=== PATIENT | female | born 1995 | race Native Hawaiian/Other Pacific Islander ===

== ENCOUNTER 2018-07-20 10:24 | Inpatient (IN) | payer MEDICAID, OTHER ==
[2018-07-20] MEDS ORDERED: Sodium Chloride 0.9% 1,000 ML IV STA ×2 (10:46→16:29)
--- NOTE | 2018-07-20 10:52 | ED PDOC ---
Arrival/HPI - General Chief Complaint: Fever Historian: Patient - History of Present Illness Narrative History of Present Illness (Text): 07/20/18 10:48 23 y/o female, no significant pmh, nkda, c/o fever/abdominal pain/diarrhea/headache x 2 days. Pt. stated that she has generalized abdominal pain, associated with multiple episodes of nonbloody diarrhea, admits fever 101.7F at home, associated with headache, no recent traveling, no neck stiffness, no numbness or tingling, no palpitation, no change in vision, no other medical or psychological complaints. Past Medical History - Provider Review Nursing Documentation Reviewed: Yes - Infectious Disease Hx of Infectious Diseases: None - Pulmonary Hx Sleep Apnea: No - Neurological Hx Seizures: No - Hematological/Oncological Hx Blood Transfusions: No - Musculoskeletal/Rheumatological Hx Back Pain: No Hx Falls: No Hx Fractures: No - Gastrointestinal Hx Gastrointestinal Disorders: Yes Hx Gastritis: Yes Hx Gastroesophageal Reflux: Yes - Psychiatric Hx Substance Use: No - Anesthesia Hx Anesthesia: No Hx Anesthesia Reactions: No Hx Malignant Hyperthermia: No Family/Social History - Physician Review Nursing Documentation Reviewed: Yes Family/Social History: Unknown Family HX Smoking Status: Never Smoked Hx Alcohol Use: No Hx Substance Use: No Allergies/Home Meds Allergies/Adverse Reactions: Allergies No Known Allergies Allergy (Verified 03/28/17 08:27) Home Medications: Home Meds Medication Instructions Recorded Confirmed No Known Home Med 07/20/18 07/20/18 Review of Systems - Review of Systems Constitutional: Fevers. absent: Fatigue Eyes: absent: Vision Changes ENT: absent: Hearing Changes Respiratory: absent: SOB, Cough Cardiovascular: absent: Chest Pain Gastrointestinal: Abdominal Pain, Diarrhea. absent: Nausea, Vomiting Skin: absent: Rash, Pruritis Neurological: Headache. absent: Dizziness Psychiatric: absent: Anxiety, Depression Physical Exam Vital Signs Reviewed: Yes Vital Signs Temp Pulse Resp BP Pulse Ox 07/20/18 10:34 101.7 F H 133 H 20 106/49 L 99 Temperature: Febrile Blood Pressure: Hypotensive Pulse: Tachycardic Respiratory Rate: Normal Appearance: Positive for: Well-Appearing, Non-Toxic Pain Distress: Moderate Mental Status: Positive for: Alert and Oriented X 3 - Systems Exam Head: Present: Atraumatic, Normocephalic Pupils: Present: PERRL Extroacular Muscles: Present: EOMI Conjunctiva: Present: Normal Mouth: Present: Moist Mucous Membranes Pharnyx: No: EXUDATE, TONSILS ENLARGED Nose (External): Present: Atraumatic. No: Abrasion, Contusion, Laceration Nose (Internal): Present: Normal Inspection, No Active Bleeding. No: Rhinorrhea, Septal Hematoma, Epistaxis Neck: Present: Normal Range of Motion, Trachea Midline. No: Meningeal Signs, MIDLINE TENDERNESS, Paraspinal Tenderness, Lymphadenopathy Respiratory/Chest: Present: Clear to Auscultation, Good Air Exchange. No: Respiratory Distress, Accessory Muscle Use Cardiovascular: Present: Regular Rate and Rhythm, Normal S1, S2. No: Murmurs Abdomen: Present: Tenderness (generalized), Normal Bowel Sounds. No: Distention, Peritoneal Signs, Rebound, Guarding Back: Present: Normal Inspection Upper Extremity: Present: Normal Inspection, Normal ROM, NORMAL PULSES, Capillary Refill < 2s. No: Cyanosis, Edema, Deformity Lower Extremity: Present: Normal Inspection, NORMAL PULSES, Neurovascularly Intact. No: Edema, Tenderness, Swelling Neurological: Present: GCS=15, CN II-XII Intact, Speech Normal, Motor Func Grossly Intact, Normal Cerebellar Funct, Gait Normal, Memory Normal Skin: Present: Warm, Dry, Normal Color. No: Rashes Psychiatric: Present: Alert, Oriented x 3, Normal Insight, Normal Concentration Medical Decision Making ED Course and Treatment: 07/20/18 10:51 -labs -CXR -CT abdomen and pelvis -IVF/tylenol/pepcid/reglan -Observe and reassess 07/20/18 15:59 -Urine hcg is negative -CXR No active pulmonary disease -CT head show No acute intracranial abnormality. -CT abdomen and pelvis show Findings are most compatible with nonspecific acute infectious/inflammatory pancolitis with severe involvement of the transverse colon. No evidence of bowel obstruction. -Labs show no acute findings except potassium 3.1 (potassium chloride 40meq po ordered) -Lipase within normal limit -Mg within normal limit -VBG Lactic acid within normal limit. -UA show +UTI but there is yeast, diflucan 150mg po ordered. -IV Cipro and flagyl ordered. -Orthostatic is negative for hypotension. -Pt. is continuously having diarrhea, hypotension (which can be her baseline), not tolerating po solid or fluid, having soreness on body from diarrhea and feel like passing out, will need IV hydration and IV antibiotic with GI consult, will treat as flu as well since normal wbc with fever. -Tamiflu ordered. -PMD is Dr. Rasheed -All labs and radiology results discussed with the patient and family, agreed to be admitted. 07/20/18 16:27 -I spoke to DR. Garvin, discussed about the case/labs/radiology result, expressed my concern her clinically with multiple diarrhea/bodyache/not eating or drinking , request to be admitted to [facility] for closer monitoring. Dr. Garvin will continue care and follow up on any pending labs/radiology results. - RAD Interpretation Radiology Orders: 07/20/18 10:45 CHEST PORTABLE [RAD] Stat 07/20/18 10:47 ABDOMEN & PELVIS [ABD PELVIS PO & IV CONTRAST] [CT] Stat . -CXR Date of service: 07/20/2018 HISTORY: medical clearance COMPARISON: 11/27/2016 FINDINGS: LUNGS: The lungs are well inflated and clear. PLEURA: No pleural effusions or pneumothorax. CARDIOVASCULAR: The heart is normal in size. No aortic atherosclerotic calcification present. OSSEOUS STRUCTURES: Within normal limits for the patient's age. VISUALIZED UPPER ABDOMEN: Normal. OTHER FINDINGS: None. IMPRESSION: No active pulmonary disease. -CT abdomen and pelvis Date of service: 07/20/2018 PROCEDURE: CT Abdomen and Pelvis with contrast HISTORY: fever/abdominal pain/diarrhea COMPARISON: 06/15/2016. TECHNIQUE: CT scan of the abdomen and pelvis was performed after administration of intravenous contrast. Oral contrast was administered. Coronal and sagittal reformatted images were obtained. Contrast dose: 100 mL Omnipaque 240 Radiation dose: Total exam DLP = 228.14 mGy-cm. This CT exam was performed using one or more of the following dose reduction techniques: Automated exposure control, adjustment of the mA and/or kV according to patient size, and/or use of iterative reconstruction technique. FINDINGS: LOWER THORAX: There is dependent atelectasis in the lung bases. LIVER: Normal in size with homogeneous enhancement. No gross lesion or ductal dilatation. GALLBLADDER AND BILE DUCTS: Well distended. No calcified gallstones, wall thickening or pericholecystic fluid. PANCREAS: Normal in size with homogeneous enhancement. No gross lesion or ductal dilatation. SPLEEN: Normal in size and appearance. ADRENALS: No discrete nodule. KIDNEYS AND URETERS: Normal in size with homogeneous enhancement. No hydronephrosis. No solid mass. VASCULATURE: No aortic aneurysm. BOWEL: The small bowel loops are normal in caliber. There is severe circumferential mural thickening in the transverse colon and mild circumferential mural thickening in the ascending and left hemicolon as well as rectum. No evidence of bowel dilatation or obstruction. APPENDIX: Normal appendix. PERITONEUM: No free fluid. No free air. LYMPH NODES: No enlarged lymph nodes. BLADDER: Well distended and normal in appearance. REPRODUCTIVE: The uterus is normal in size. BONES: No acute fracture. Within normal limits for the patient's age. OTHER FINDINGS: There is a small sliding hiatal hernia. IMPRESSION: Findings are most compatible with nonspecific acute infectious/inflammatory pancolitis with severe involvement of the transverse colon. No evidence of bowel obstruction. ---- CT Head: Date of service: 07/20/2018 PROCEDURE: CT HEAD WITHOUT CONTRAST. HISTORY: headache COMPARISON: None available. TECHNIQUE: Axial computed tomography images were obtained through the head/brain without intravenous contrast. Radiation dose: Total exam DLP = 787.28 mGy-cm. This CT exam was performed using one or more of the following dose reduction techniques: Automated exposure control, adjustment of the mA and/or kV according to patient size, and/or use of iterative reconstruction technique. FINDINGS: HEMORRHAGE: No intracranial hemorrhage. BRAIN: Paul-white matter differentiation is preserved. There is no mass, mass effect or abnormal extra-axial fluid collection. There is no territorial infarction. The midline sagittal structures are normal. VENTRICLES: The ventricles are normal in size, shape and configuration. CALVARIUM: There is no calvarial fracture or extracranial soft tissue swelling. PARANASAL SINUSES: Predominantly clear. MASTOID AIR CELLS: Predominantly clear. OTHER FINDINGS: None. IMPRESSION: No acute intracranial abnormality. Sonoscope Operator: Radiologist - Medication Orders Current Medication Orders: Acetaminophen (Tylenol 325mg Tab) 650 mg PO STAT STA Stop: 07/20/18 10:48 Sodium Chloride (Sodium Chloride 0.9%) 1,000 mls @ 999 mls/hr IV .Q1H1M STA Stop: 07/20/18 11:46 Discontinued Medications Famotidine (Pepcid) 20 mg IVP STAT STA Stop: 07/20/18 10:46 Metoclopramide HCl (Reglan) 10 mg IVP STAT STA Stop: 07/20/18 10:46 - PA / TINNER HELPER / Resident Statement MD/DO has reviewed & agrees with the documentation as recorded. Disposition/Present on Arrival - Present on Arrival Any Indicators Present on Arrival: No History of DVT/PE: No History of Uncontrolled Diabetes: No Urinary Catheter: No History of Decub. Ulcer: No History Surgical Site Infection Following: None - Disposition Have Diagnosis and Disposition been Completed?: Yes Diagnosis: Candidiasis, Hypokalemia, UTI (urinary tract infection), Pancolitis Disposition: HOSPITALIZED Disposition Time: 15:56 Patient Plan: Admission Patient Problems: Current Active Problems Problem Status Onset Candidiasis Acute Hypokalemia Acute UTI (urinary tract infection) Acute Pancolitis Acute Condition: STABLE Discharge Instructions (ExitCare): Ulcerative Colitis (ED) Forms: [facility] (Chinese), SCHOOL NOTE
[2018-07-20] MEDS ORDERED: Sodium Chloride 0.9% 1,000 ML IV SCH (11:00)
[2018-07-20 11:23] LABS: PH,URINE 6.5 (4.7-8.0); URINE BILIRUBIN NEGATIVE (NEGATIVE); URINE BLOOD TRACE-INTACT (NEGATIVE); URINE GLUCOSE (UA) NEGATIVE (NEGATIVE); URINE LEUKOCYTE ESTERASE NEGATIVE Leu/uL (NEGATIVE); URINE PROTEIN TRACE mg/dL (<30 mg/dL); URINE UROBILINOGEN 0.2 E.U./dL (<1 E.U./dL)
[2018-07-20 11:29] LABS: URINE APPEARANCE CLEAR (CLEAR); URINE COLOR YELLOW (YELLOW)
[2018-07-20 11:32] LABS: VENOUS BLOOD GAS BASE EXCESS -1.7 mmol/L (0.0-2.0); VENOUS BLOOD GAS PO2 34 mm/Hg (30-55); VENOUS BLOOD PH 7.34 (7.32-7.43)
[2018-07-20 11:44] LABS: ALB/GLOB RATIO 1.3 (1.1-1.8); ALBUMIN 3.9 g/dL (3.0-4.8); ALT/SGPT 17 U/L (7-56); AST/SGOT 16 U/L (14-36); BLOOD UREA NITROGEN 8 mg/dL (7-21); CALCIUM 8.7 mg/dL (8.4-10.5); GFR NON-AFRICAN AMERICAN > 60; LIPASE 49 U/L (23-300)
[2018-07-20 11:48] LABS: GRAN # 6.73 (1.4-6.5); GRAN % 88.7 % (50.0-68.0); HEMOGLOBIN 12.2 g/dL (12.0-16.0); LYMPH # 0.7 (1.2-3.4); LYMPH % 8.8 % (22.0-35.0); MEAN CELL VOLUME 93.3 fl (80.0-105.0); MEAN CORPUSCULAR HEMOGLOBIN 31.6 pg (25.0-35.0); MEAN CORPUSCULAR HGB CONC 33.9 g/dl (31.0-37.0); MEAN PLATELET VOLUME 9.3 fl (7.0-11.0); MONO # 0.2 (0.1-0.6); MONO % 2.5 % (1.0-6.0); RBC 3.86 10^6/uL (3.5-6.1); RED CELL DISTRIBUTION WIDTH 12.3 % (11.5-14.5); WHITE BLOOD COUNT 7.6 10^3/uL (4.5-11.0)
--- NOTE | 2018-07-20 11:55 | RAD ---
Date of service: 07/20/2018 HISTORY: medical clearance COMPARISON: 11/27/2016 FINDINGS: LUNGS: The lungs are well inflated and clear. PLEURA: No pleural effusions or pneumothorax. CARDIOVASCULAR: The heart is normal in size. No aortic atherosclerotic calcification present. OSSEOUS STRUCTURES: Within normal limits for the patient's age. VISUALIZED UPPER ABDOMEN: Normal. OTHER FINDINGS: None. IMPRESSION: No active pulmonary disease.
[2018-07-20 12:03] LABS: URINE WBC 0 - 2 /hpf (0-6)
[2018-07-20 12:04] LABS: URINE BACTERIA LARGE (NEG)
[2018-07-20] MEDS ORDERED: Potassium Chloride 20 mEq ER Tab PO STA (12:13)
[2018-07-20] MEDS ORDERED: Iohexol 240 (50 ml) ONE (12:27)
[2018-07-20] MEDS ORDERED: Iohexol 350 MG/100 ML VIAL ONE (14:18)
--- NOTE | 2018-07-20 15:41 | CT ---
Date of service: 07/20/2018 PROCEDURE: CT HEAD WITHOUT CONTRAST. HISTORY: headache COMPARISON: None available. TECHNIQUE: Axial computed tomography images were obtained through the head/brain without intravenous contrast. Radiation dose: Total exam DLP = 787.28 mGy-cm. This CT exam was performed using one or more of the following dose reduction techniques: Automated exposure control, adjustment of the mA and/or kV according to patient size, and/or use of iterative reconstruction technique. FINDINGS: HEMORRHAGE: No intracranial hemorrhage. BRAIN: Paul-white matter differentiation is preserved. There is no mass, mass effect or abnormal extra-axial fluid collection. There is no territorial infarction. The midline sagittal structures are normal. VENTRICLES: The ventricles are normal in size, shape and configuration. CALVARIUM: There is no calvarial fracture or extracranial soft tissue swelling. PARANASAL SINUSES: Predominantly clear. MASTOID AIR CELLS: Predominantly clear. OTHER FINDINGS: None. IMPRESSION: No acute intracranial abnormality.
--- NOTE | 2018-07-20 15:54 | CT ---
Date of service: 07/20/2018 PROCEDURE: CT Abdomen and Pelvis with contrast HISTORY: fever/abdominal pain/diarrhea COMPARISON: 06/15/2016. TECHNIQUE: CT scan of the abdomen and pelvis was performed after administration of intravenous contrast. Oral contrast was administered. Coronal and sagittal reformatted images were obtained. Contrast dose: 100 mL Omnipaque 240 Radiation dose: Total exam DLP = 228.14 mGy-cm. This CT exam was performed using one or more of the following dose reduction techniques: Automated exposure control, adjustment of the mA and/or kV according to patient size, and/or use of iterative reconstruction technique. FINDINGS: LOWER THORAX: There is dependent atelectasis in the lung bases. LIVER: Normal in size with homogeneous enhancement. No gross lesion or ductal dilatation. GALLBLADDER AND BILE DUCTS: Well distended. No calcified gallstones, wall thickening or pericholecystic fluid. PANCREAS: Normal in size with homogeneous enhancement. No gross lesion or ductal dilatation. SPLEEN: Normal in size and appearance. ADRENALS: No discrete nodule. KIDNEYS AND URETERS: Normal in size with homogeneous enhancement. No hydronephrosis. No solid mass. VASCULATURE: No aortic aneurysm. BOWEL: The small bowel loops are normal in caliber. There is severe circumferential mural thickening in the transverse colon and mild circumferential mural thickening in the ascending and left hemicolon as well as rectum. No evidence of bowel dilatation or obstruction. APPENDIX: Normal appendix. PERITONEUM: No free fluid. No free air. LYMPH NODES: No enlarged lymph nodes. BLADDER: Well distended and normal in appearance. REPRODUCTIVE: The uterus is normal in size. BONES: No acute fracture. Within normal limits for the patient's age. OTHER FINDINGS: There is a small sliding hiatal hernia. IMPRESSION: Findings are most compatible with nonspecific acute infectious/inflammatory pancolitis with severe involvement of the transverse colon. No evidence of bowel obstruction.
[2018-07-20] MEDS ORDERED: Ciprofloxacin 400mg/200ml D5W 400 MG/200 ML BAG IVPB STA (15:55)
[2018-07-20] MEDS ORDERED: metroNIDAZOLE IV 500 mg/100 ml 500 MG/100 ML BAG IVPB STA (15:55)
[2018-07-20] MEDS: Sodium Chloride 0.9% 1,000 ML IV SCH (16:20)
--- NOTE | 2018-07-20 16:56 | CP.PCM.HP ---
<Terry Collins - Last Filed: 07/20/18 21:56> History of Present Illness - History of Present Illness History of Present Illness: Terry Collins, PGY1 H&P for Dr. Garvin cc: fever, abdominal pain, diarrhea, vomiting, headache Patient is a 23 y/o female with PMHx gastritis who presented to the ED for fever, abdominal pain, diarrhea, vomiting, and headache that occurred yesterday. Patient denied sick contacts and recent travel. She does admit to eating Popeyes prior to the start of these symptoms. In the ED, patient's vitals were Temp: 101.7, HR 83, BP 92/49, RR 16, and SaO2 99% on room air. Patient's cbc and bmp were unremarkable except for a K of 3.1 which was repleted with 40meq K-dur. CXR, Head CT and CT abdomen/pelvis were also ordered. Patient was started on IVF. Medical team was consulted for evaluation. Patient has a previous admission for abdominal pain, in which she was seen by GI (Dr. Smith); she was sent for endoscopy (03/28/17) that showed gastritis. Patient endorses dizziness as well, which she says has resolved since admission; denies trauma, fall, tongue biting, blurry or changes in vision. She had non-bloody vomiting yesterday and had another episode prior to interview. Patient also had x7 episodes of diarrhea yesterday while x4 episodes earlier today. Diarrhea is also non-bloody. Denies recent antibx use. Her headache was bilateral without phonophobia or photophob ia; it has resolved today. Abdominal pain is rated 3/10 (improved from yesterday) and located in the lower abdomen. She denies chest pain, sob, weight loss, fatigue, numbness/tingling of extremities. A full 12 point ROS was conducted and unremarkable except as stated above. PMD: Dr. Rasheed PMHx: gastritis (endoscopy 03/28/17) PSHx: none Meds: none Allergies: NKDA FHx: father and mother alive and well; grandfather with liver cancer; grandmother with heart disease and DM SocialHx: works at a [employer]. Also a college student at [employer]. Denies EtOH, smoking, recreational drug use. Present on Admission - Present on Admission Any Indicators Present on Admission: No History of DVT/PE: No History of Uncontrolled Diabetes: No Urinary Catheter: No Decubitus Ulcer Present: No Review of Systems - Review of Systems All systems: reviewed and no additional remarkable complaints except (as per HPI.) Past Patient History - Infectious Disease Hx of Infectious Diseases: None - Past Medical History & Family History Past Medical History?: No - Past Social History Smoking Status: Never Smoked - PULMONARY Hx Sleep Apnea: No - NEUROLOGICAL Hx Seizures: No - HEMATOLOGICAL/ONCOLOGICAL Hx Blood Transfusions: No - MUSCULOSKELETAL/RHEUMATOLOGICAL Hx Back Pain: No Hx Falls: No Hx Fractures: No - GASTROINTESTINAL Hx Gastrointestinal Disorders: Yes Hx Gastritis: Yes Hx Gastroesophageal Reflux: Yes - PSYCHIATRIC Hx Substance Use: No - SURGICAL HISTORY Hx Surgeries: No - ANESTHESIA Hx Anesthesia: No Hx Anesthesia Reactions: No Hx Malignant Hyperthermia: No Meds Allergies/Adverse Reactions: Allergies Allergy/AdvReac Type Severity Reaction Status Date / Time No Known Allergies Allergy Verified 03/28/17 08:27 Physical Exam - Head Exam Head Exam: ATRAUMATIC, NORMAL INSPECTION, NORMOCEPHALIC - Eye Exam Eye Exam: EOMI, Normal appearance, PERRL - ENT Exam ENT Exam: Mucous Membranes Moist, Normal Exam - Neck Exam Neck exam: Positive for: Normal Inspection Additional comments: Negative Kernig and Brudzinski sign. - Respiratory Exam Respiratory Exam: Clear to Auscultation Bilateral, NORMAL BREATHING PATTERN. absent: Chest Wall Tenderness, Rales, Rhonchi, Wheezes, Respiratory Distress - Cardiovascular Exam Cardiovascular Exam: REGULAR RHYTHM, +S1, +S2 - GI/Abdominal Exam GI & Abdominal Exam: Normal Bowel Sounds, Soft, Tenderness (Suprapubic tenderness ). absent: Distended, Guarding, Mass, Rigid - Extremities Exam Extremities exam: Positive for: normal inspection - Back Exam Back exam: FULL ROM. absent: CVA tenderness (L), CVA tenderness (R) - Neurological Exam Neurological exam: Alert, CN II-XII Intact, Normal Gait, Oriented x3, Reflexes Normal - Skin Skin Exam: Dry, Intact, Normal Color, Warm Results - Vital Signs Recent Vital Signs: Last Vital Signs Temp 98.5 F 07/20/18 15:32 Pulse 84 07/20/18 15:00 Resp 16 07/20/18 15:00 BP 83/52 L 07/20/18 15:00 Pulse Ox 100 07/20/18 15:00 - Labs Result Diagrams: 07/20/18 11:20 07/20/18 11:20 Labs: Laboratory Results - last 24 hr 07/20/18 07/20/18 07/20/18 10:45 11:00 11:20 WBC 7.6 RBC 3.86 Hgb 12.2 Hct 36.0 MCV 93.3 MCH 31.6 MCHC 33.9 RDW 12.3 Plt Count 205 MPV 9.3 Gran % 88.7 H Lymph % (Auto) 8.8 L [place] % (Auto) 2.5 Eos % (Auto) 0.0 L Baso % (Auto) 0.0 Gran # 6.73 H Lymph # (Auto) 0.7 L [place] # (Auto) 0.2 Eos # (Auto) 0.0 Baso # (Auto) 0.00 pO2 VBG pH VBG pCO2 VBG HCO3 VBG Total CO2 VBG O2 Sat (Calc) VBG Base Excess VBG Potassium Sodium Chloride Glucose Lactate FiO2 Potassium Carbon Dioxide Anion Gap BUN Creatinine Est GFR ( Amer) Est GFR (Non-Af Amer) Random Glucose Calcium Magnesium Total Bilirubin AST ALT Alkaline Phosphatase Total Protein Albumin Globulin Albumin/Globulin Ratio Lipase Venous Blood Potassium Urine Color Yellow Urine Appearance Clear Urine pH 6.5 Ur Specific [place] 1.020 Urine Protein Trace H Urine Glucose (UA) Negative Urine Ketones 40 H Urine Blood Trace-intact H Urine Nitrate Negative Urine Bilirubin Negative Urine Urobilinogen 0.2 Ur Leukocyte Esterase Negative Urine RBC 2 - 5 Urine WBC 0 - 2 Ur Epithelial Cells 6 - 8 Urine Bacteria Large Urine Other Uyeast Influenza Typ A,B (EIA) Negative for flu a/b 07/20/18 07/20/18 11:20 11:20 WBC RBC Hgb Hct MCV MCH MCHC RDW Plt Count MPV Gran % Lymph % (Auto) [place] % (Auto) Eos % (Auto) Baso % (Auto) Gran # Lymph # (Auto) [place] # (Auto) Eos # (Auto) Baso # (Auto) pO2 34 VBG pH 7.34 VBG pCO2 45.0 VBG HCO3 24.3 VBG Total CO2 25.7 VBG O2 Sat (Calc) 72.3 H VBG Base Excess -1.7 L VBG Potassium 2.8 L Sodium 135 135.0 Chloride 101 100.0 Glucose 107 H Lactate 1.7 FiO2 21.0 Potassium 3.1 L Carbon Dioxide 24 Anion Gap 13 BUN 8 Creatinine 0.6 L Est GFR ( Amer) > 60 Est GFR (Non-Af Amer) > 60 Random Glucose 109 Calcium 8.7 Magnesium 1.8 Total Bilirubin 0.7 AST 16 ALT 17 Alkaline Phosphatase 45 Total Protein 7.0 Albumin 3.9 Globulin 3.1 Albumin/Globulin Ratio 1.3 Lipase 49 Venous Blood Potassium 2.8 L Urine Color Urine Appearance Urine pH Ur Specific [place] Urine Protein Urine Glucose (UA) Urine Ketones Urine Blood Urine Nitrate Urine Bilirubin Urine Urobilinogen Ur Leukocyte Esterase Urine RBC Urine WBC Ur Epithelial Cells Urine Bacteria Urine Other Influenza Typ A,B (EIA) Assessment & Plan - Assessment and Plan (Free Text) Assessment: Patient is a 23 y/o female with PMHx gastritis who presented to the ED for fever, abdominal pain, diarrhea, vomiting, and headache that occurred yesterday. Medical team was consulted for management. Plan: Viral gastroenteritis with evidence of pancolitis - zofran IVP prn for nausea and vomiting - NS IVF at rate of 125 mls/hr - Keep patient NPO - started on rocephin 1g IVPB daily and flagyl 500mg q8 IVPB - Protonix 40mg IVP daily - stool leukocytes/ova/parasites - Patient has not recently been on antibx - GI consulted. Follow up recs. - CT Abd/Pelvis in ED: severe circumferential mural thickening in the transverse colon and mild circumferential thickening in the ascending and left hemicolon and rectum. No evidence of bowel dilation or obstruction. - Previous endoscopy (03/28/17) showed gastritis - Tylenol for fevers - PMHx of gastritis - Lipase wnl Hypokalemia 2/2 Vomiting - K+ 3.1 in ED; repleted - monitor - f/u repeat labs Hypotension likely due to low BMI - Latest BP 106/62 and SBP in the 90s; patient BMI is 16.5 and is stable - c/w maintenance fluids at rate of 125 mls/hr - Given 2 L fluid bolus in ED - negative lactate on vbg GI ppx: PTX Dispo: monitor patient on the floor. Follow up recommendations as per GI. Case was discussed and reviewed with Attending Physician, Dr. Garvin. <Richy Garvin - Last Filed: 07/21/18 07:41> Results - Vital Signs Recent Vital Signs: Last Vital Signs Temp 99.6 F 07/21/18 06:00 Pulse 85 07/21/18 06:00 Resp 18 07/21/18 06:00 BP 90/50 L 07/21/18 06:00 Pulse Ox 99 07/21/18 06:00 - Labs Result Diagrams: 07/21/18 06:15 07/21/18 06:15 Labs: Laboratory Results - last 24 hr 07/20/18 07/20/18 07/20/18 10:45 11:00 11:20 WBC 7.6 RBC 3.86 Hgb 12.2 Hct 36.0 MCV 93.3 MCH 31.6 MCHC 33.9 RDW 12.3 Plt Count 205 MPV 9.3 Gran % 88.7 H Lymph % (Auto) 8.8 L [place] % (Auto) 2.5 Eos % (Auto) 0.0 L Baso % (Auto) 0.0 Gran # 6.73 H Lymph # (Auto) 0.7 L [place] # (Auto) 0.2 Eos # (Auto) 0.0 Baso # (Auto) 0.00 pO2 VBG pH VBG pCO2 VBG HCO3 VBG Total CO2 VBG O2 Sat (Calc) VBG Base Excess VBG Potassium Sodium Chloride Glucose Lactate FiO2 Potassium Carbon Dioxide Anion Gap BUN Creatinine Est GFR ( Amer) Est GFR (Non-Af Amer) Random Glucose Calcium Phosphorus Magnesium Total Bilirubin AST ALT Alkaline Phosphatase Total Protein Albumin Globulin Albumin/Globulin Ratio Lipase Venous Blood Potassium Urine Color Yellow Urine Appearance Clear Urine pH 6.5 Ur Specific [place] 1.020 Urine Protein Trace H Urine Glucose (UA) Negative Urine Ketones 40 H Urine Blood Trace-intact H Urine Nitrate Negative Urine Bilirubin Negative Urine Urobilinogen 0.2 Ur Leukocyte Esterase Negative Urine RBC 2 - 5 Urine WBC 0 - 2 Ur Epithelial Cells 6 - 8 Urine Bacteria Large Urine Other Uyeast Stool Leukocytes, Qual Influenza Typ A,B (EIA) Negative for flu a/b 07/20/18 07/20/18 07/20/18 11:20 11:20 18:00 WBC RBC Hgb Hct MCV MCH MCHC RDW Plt Count MPV Gran % Lymph % (Auto) [place] % (Auto) Eos % (Auto) Baso % (Auto) Gran # Lymph # (Auto) [place] # (Auto) Eos # (Auto) Baso # (Auto) pO2 34 VBG pH 7.34 VBG pCO2 45.0 VBG HCO3 24.3 VBG Total CO2 25.7 VBG O2 Sat (Calc) 72.3 H VBG Base Excess -1.7 L VBG Potassium 2.8 L Sodium 135 135.0 Chloride 101 100.0 Glucose 107 H Lactate 1.7 FiO2 21.0 Potassium 3.1 L Carbon Dioxide 24 Anion Gap 13 BUN 8 Creatinine 0.6 L Est GFR ( Amer) > 60 Est GFR (Non-Af Amer) > 60 Random Glucose 109 Calcium 8.7 Phosphorus Magnesium 1.8 Total Bilirubin 0.7 AST 16 ALT 17 Alkaline Phosphatase 45 Total Protein 7.0 Albumin 3.9 Globulin 3.1 Albumin/Globulin Ratio 1.3 Lipase 49 Venous Blood Potassium 2.8 L Urine Color Urine Appearance Urine pH Ur Specific [place] Urine Protein Urine Glucose (UA) Urine Ketones Urine Blood Urine Nitrate Urine Bilirubin Urine Urobilinogen Ur Leukocyte Esterase Urine RBC Urine WBC Ur Epithelial Cells Urine Bacteria Urine Other Stool Leukocytes, Qual Positive H Influenza Typ A,B (EIA) 07/21/18 07/21/18 06:15 06:15 WBC 4.8 D RBC 3.76 Hgb 11.8 L Hct 35.3 L MCV 93.9 MCH 31.4 MCHC 33.4 RDW 12.5 Plt Count 177 MPV 9.6 Gran % 77.0 H Lymph % (Auto) 17.6 L [place] % (Auto) 5.2 Eos % (Auto) 0.0 L Baso % (Auto) 0.2 Gran # 3.67 Lymph # (Auto) 0.8 L [place] # (Auto) 0.3 Eos # (Auto) 0.0 Baso # (Auto) 0.01 pO2 VBG pH VBG pCO2 VBG HCO3 VBG Total CO2 VBG O2 Sat (Calc) VBG Base Excess VBG Potassium Sodium 137 Chloride 108 H Glucose Lactate FiO2 Potassium 3.4 L Carbon Dioxide 20 L Anion Gap 12 BUN 3 L Creatinine 0.5 L Est GFR ( Amer) > 60 Est GFR (Non-Af Amer) > 60 Random Glucose 73 Calcium 7.9 L Phosphorus 2.7 Magnesium 1.8 Total Bilirubin 0.3 AST 19 ALT 21 Alkaline Phosphatase 49 Total Protein 6.3 Albumin 3.3 Globulin 3.0 Albumin/Globulin Ratio 1.1 Lipase Venous Blood Potassium Urine Color Urine Appearance Urine pH Ur Specific [place] Urine Protein Urine Glucose (UA) Urine Ketones Urine Blood Urine Nitrate Urine Bilirubin Urine Urobilinogen Ur Leukocyte Esterase Urine RBC Urine WBC Ur Epithelial Cells Urine Bacteria Urine Other Stool Leukocytes, Qual Influenza Typ A,B (EIA) Attending/Attestation - Attestation I have personally seen and examined this patient.: Yes I have fully participated in the care of the patient.: Yes I have reviewed all pertinent clinical information: Yes Notes (Text): 07/20/18 23 year old female with past medical history of gastritis (2017) who presents with complaint of abdominal pain, nausea, vomiting, and diarrhea; possible gastroenteritis or colitis. CT abd/pelvis showed severe circumferential mural thickening in the transverse colon and mild circumferential thickening in the ascending and left hemicolon and rectum. Continue with NPO, iv fluids and antiemetics as needed. Continue with iv antibiotics while awaiting cultures. GI evaluation is requested. Stool studies ordered. She also initially complained of headache, now improved. CT head was negative. Denies any neck pain, photophobia or nuchal rigidity. Will replete and repeat lytes (potassium). Richy Garvin MD Hospitalist.
[2018-07-20 18:24] VITALS: BMI 16.5
[2018-07-20] MEDS: cefTRIAXone 1 gm 1 GM/100 ML BAG IVPB SCH (20:51)
[2018-07-21] MEDS: Sodium Chloride 0.9% 1,000 ML IV SCH ×3 (04:52→21:25)
[2018-07-21] MEDS: metroNIDAZOLE IV 500 mg/100 ml 500 MG/100 ML BAG IVPB SCH ×4 (05:00→21:24)
[2018-07-21 06:51] LABS: BASO # 0.01 K/mm3 (0.0-2.0); BASO % 0.2 % (0.0-3.0); GRAN # 3.67 (1.4-6.5); HEMOGLOBIN 11.8 g/dL (12.0-16.0); LYMPH # 0.8 (1.2-3.4); LYMPH % 17.6 % (22.0-35.0); MEAN CELL VOLUME 93.9 fl (80.0-105.0); MEAN CORPUSCULAR HEMOGLOBIN 31.4 pg (25.0-35.0); MEAN CORPUSCULAR HGB CONC 33.4 g/dl (31.0-37.0); MEAN PLATELET VOLUME 9.6 fl (7.0-11.0); MONO # 0.3 (0.1-0.6); MONO % 5.2 % (1.0-6.0); RBC 3.76 10^6/uL (3.5-6.1); RED CELL DISTRIBUTION WIDTH 12.5 % (11.5-14.5); WHITE BLOOD COUNT 4.8 10^3/uL (4.5-11.0)
[2018-07-21 07:35] LABS: ALB/GLOB RATIO 1.1 (1.1-1.8); ALBUMIN 3.3 g/dL (3.0-4.8); ALT/SGPT 21 U/L (7-56); AST/SGOT 19 U/L (14-36); BLOOD UREA NITROGEN 3 mg/dL (7-21); CALCIUM 7.9 mg/dL (8.4-10.5); GFR NON-AFRICAN AMERICAN > 60
[2018-07-21] MEDS ORDERED: Potassium Chloride 20 mEq ER Tab PO STA (08:32)
--- NOTE | 2018-07-21 09:16 | CARD ---
APPROVED REPORT Date of service: 07/20/2018 EKG Measurement Heart [id number] <Conclusion> Sinus tachycardia T wave abnormality, consider inferior ischemia T wave abnormality, consider anterolateral ischemia Abnormal ECG
--- NOTE | 2018-07-21 09:28 | CP.PCM.CON ---
<Cyndie Johns - Last Filed: 07/21/18 11:46> History of Present Illness - History of Present Illness History of Present Illness: Gastroenterology Fellow/PGY6 Consult Note 23 year old female with no PMH presenting with abdominal pain and diarrhea. Patient notes eating [employer] fried chicken two days ago followed by sudden onset of dizziness upon standing one clear vomitus episode and a headache. She developed progressive midline abdominal pain with seven watery stools leading to ER presentation. Since admission, patient notes at least fifteen watery stools and one stool per hour since this morning with stool particles. Admits to one watery vomitus yesterday after admission. Associated fever. Notes resolved upper abdominal pain and continued constant, dull lower abdominal pain. Denies chills, sweats, hematemesis, melena, hematochezia, unintentional weight loss, aphthous ulcers, skin rash/sores, kidney stones, joint pain, sick contacts, recent travel/antibiotics, new medications, or NSAIDs use. Notes sister and father ate the same foods and are healthy. Admits to one oral canker sore that comes and goes since childhood. Prior EGD 03/2017 for evaluation of abdominal pain showed H. pylori negative gastritis with use of Zantac as needed. No prior colonoscopy. Family History- mother with "stomach issues', denies stomach cancer, colon cancer Social History- denies tobacco, alcohol, illicit drug use Surgical History- none Review of Systems - Review of Systems Review of Systems: 12-point review of systems negative except for as above Past Patient History - Infectious Disease Hx of Infectious Diseases: None - Past Medical History & Family History Past Medical History?: No - Past Social History Smoking Status: Never Smoked - CARDIAC Hx Cardiac Disorders: No - PULMONARY Hx Sleep Apnea: No - NEUROLOGICAL Hx Seizures: No - HEENT Hx HEENT Problems: No - RENAL Hx Chronic Kidney Disease: No - ENDOCRINE/METABOLIC Hx Endocrine Disorders: No - HEMATOLOGICAL/ONCOLOGICAL Hx Blood Transfusions: No - INTEGUMENTARY Hx Dermatological Problems: No - MUSCULOSKELETAL/RHEUMATOLOGICAL Hx Back Pain: No Hx Falls: No Hx Fractures: No - GASTROINTESTINAL Hx Gastrointestinal Disorders: Yes Hx Gastritis: Yes Hx Gastroesophageal Reflux: Yes - GENITOURINARY/GYNECOLOGICAL Hx Genitourinary Disorders: No - PSYCHIATRIC Hx Substance Use: No - SURGICAL HISTORY Hx Surgeries: No - ANESTHESIA Hx Anesthesia: No Hx Anesthesia Reactions: No Hx Malignant Hyperthermia: No Meds Allergies/Adverse Reactions: Allergies Allergy/AdvReac Type Severity Reaction Status Date / Time No Known Allergies Allergy Verified 03/28/17 08:27 - Medications Medications: Current Medications Acetaminophen (Tylenol 325mg Tab) 650 mg PO Q6H PRN PRN Reason: Fever >100.4 F Sodium Chloride (Sodium Chloride 0.9%) 1,000 mls @ 125 mls/hr IV .Q8H [facility] Last Admin: 07/21/18 04:52 Dose: 125 mls/hr Metronidazole (Flagyl) 500 mg in 100 mls @ 100 mls/hr IVPB Q8 [facility]; Protocol Last Admin: 07/21/18 05:00 Dose: 100 mls/hr Ceftriaxone Sodium (Rocephin 1 Gram Ivpb) 1 gm in 100 mls @ 100 mls/hr IVPB DAILY [facility]; Protocol Last Admin: 07/20/18 20:51 Dose: 100 mls/hr Ondansetron HCl (Zofran Inj) 4 mg IVP Q6H PRN PRN Reason: Nausea/Vomiting Last Admin: 07/20/18 17:27 Dose: 4 mg Pantoprazole Sodium (Protonix Inj) 40 mg IVP DAILY [facility] Physical Exam - Constitutional Appears: Non-toxic, No Acute Distress - Head Exam Head Exam: ATRAUMATIC, NORMOCEPHALIC - Eye Exam Eye Exam: EOMI, PERRL. absent: Scleral icterus Pupil Exam: PERRL. absent: Miosis, Mydriatic - ENT Exam ENT Exam: Mucous Membranes Moist, Normal Oropharynx - Neck Exam Neck exam: Positive for: Full Rom, Normal Inspection - Respiratory Exam Respiratory Exam: Clear to Auscultation Bilateral. absent: Rales, Rhonchi, Wheezes - Cardiovascular Exam Cardiovascular Exam: RRR, +S1, +S2. absent: Gallop, Rubs - GI/Abdominal Exam GI & Abdominal Exam: Normal Bowel Sounds, Soft, Tenderness. absent: Distended, Firm, Guarding, Organomegaly, Rebound, Rigid Additional comments: B/L LQ tenderness to palpation - Extremities Exam Extremities exam: Positive for: normal inspection. Negative for: pedal edema - Neurological Exam Neurological exam: Alert, Oriented x3 - Psychiatric Exam Psychiatric exam: Normal Affect, Normal Mood - Skin Skin Exam: Dry, Intact, Normal Color, Warm Results - Vital Signs Recent Vital Signs: Last Vital Signs Temp 99.6 F 07/21/18 06:00 Pulse 85 07/21/18 06:00 Resp 18 07/21/18 06:00 BP 90/50 L 07/21/18 06:00 Pulse Ox 99 07/21/18 06:00 - Labs Result Diagrams: 07/21/18 06:15 07/21/18 06:15 Labs: Laboratory Results - last 24 hr 07/20/18 07/20/18 07/20/18 10:45 11:00 11:20 WBC 7.6 RBC 3.86 Hgb 12.2 Hct 36.0 MCV 93.3 MCH 31.6 MCHC 33.9 RDW 12.3 Plt Count 205 MPV 9.3 Gran % 88.7 H Lymph % (Auto) 8.8 L [place] % (Auto) 2.5 Eos % (Auto) 0.0 L Baso % (Auto) 0.0 Gran # 6.73 H Lymph # (Auto) 0.7 L [place] # (Auto) 0.2 Eos # (Auto) 0.0 Baso # (Auto) 0.00 pO2 VBG pH VBG pCO2 VBG HCO3 VBG Total CO2 VBG O2 Sat (Calc) VBG Base Excess VBG Potassium Sodium Chloride Glucose Lactate FiO2 Potassium Carbon Dioxide Anion Gap BUN Creatinine Est GFR ( Amer) Est GFR (Non-Af Amer) Random Glucose Calcium Phosphorus Magnesium Total Bilirubin AST ALT Alkaline Phosphatase Total Protein Albumin Globulin Albumin/Globulin Ratio Lipase Venous Blood Potassium Urine Color Yellow Urine Appearance Clear Urine pH 6.5 Ur Specific [place] 1.020 Urine Protein Trace H Urine Glucose (UA) Negative Urine Ketones 40 H Urine Blood Trace-intact H Urine Nitrate Negative Urine Bilirubin Negative Urine Urobilinogen 0.2 Ur Leukocyte Esterase Negative Urine RBC 2 - 5 Urine WBC 0 - 2 Ur Epithelial Cells 6 - 8 Urine Bacteria Large Urine Other Uyeast Stool Leukocytes, Qual Influenza Typ A,B (EIA) Negative for flu a/b 07/20/18 07/20/18 07/20/18 11:20 11:20 18:00 WBC RBC Hgb Hct MCV MCH MCHC RDW Plt Count MPV Gran % Lymph % (Auto) [place] % (Auto) Eos % (Auto) Baso % (Auto) Gran # Lymph # (Auto) [place] # (Auto) Eos # (Auto) Baso # (Auto) pO2 34 VBG pH 7.34 VBG pCO2 45.0 VBG HCO3 24.3 VBG Total CO2 25.7 VBG O2 Sat (Calc) 72.3 H VBG Base Excess -1.7 L VBG Potassium 2.8 L Sodium 135 135.0 Chloride 101 100.0 Glucose 107 H Lactate 1.7 FiO2 21.0 Potassium 3.1 L Carbon Dioxide 24 Anion Gap 13 BUN 8 Creatinine 0.6 L Est GFR ( Amer) > 60 Est GFR (Non-Af Amer) > 60 Random Glucose 109 Calcium 8.7 Phosphorus Magnesium 1.8 Total Bilirubin 0.7 AST 16 ALT 17 Alkaline Phosphatase 45 Total Protein 7.0 Albumin 3.9 Globulin 3.1 Albumin/Globulin Ratio 1.3 Lipase 49 Venous Blood Potassium 2.8 L Urine Color Urine Appearance Urine pH Ur Specific [place] Urine Protein Urine Glucose (UA) Urine Ketones Urine Blood Urine Nitrate Urine Bilirubin Urine Urobilinogen Ur Leukocyte Esterase Urine RBC Urine WBC Ur Epithelial Cells Urine Bacteria Urine Other Stool Leukocytes, Qual Positive H Influenza Typ A,B (EIA) 07/21/18 07/21/18 06:15 06:15 WBC 4.8 D RBC 3.76 Hgb 11.8 L Hct 35.3 L MCV 93.9 MCH 31.4 MCHC 33.4 RDW 12.5 Plt Count 177 MPV 9.6 Gran % 77.0 H Lymph % (Auto) 17.6 L [place] % (Auto) 5.2 Eos % (Auto) 0.0 L Baso % (Auto) 0.2 Gran # 3.67 Lymph # (Auto) 0.8 L [place] # (Auto) 0.3 Eos # (Auto) 0.0 Baso # (Auto) 0.01 pO2 VBG pH VBG pCO2 VBG HCO3 VBG Total CO2 VBG O2 Sat (Calc) VBG Base Excess VBG Potassium Sodium 137 Chloride 108 H Glucose Lactate FiO2 Potassium 3.4 L Carbon Dioxide 20 L Anion Gap 12 BUN 3 L Creatinine 0.5 L Est GFR ( Amer) > 60 Est GFR (Non-Af Amer) > 60 Random Glucose 73 Calcium 7.9 L Phosphorus 2.7 Magnesium 1.8 Total Bilirubin 0.3 AST 19 ALT 21 Alkaline Phosphatase 49 Total Protein 6.3 Albumin 3.3 Globulin 3.0 Albumin/Globulin Ratio 1.1 Lipase Venous Blood Potassium Urine Color Urine Appearance Urine pH Ur Specific [place] Urine Protein Urine Glucose (UA) Urine Ketones Urine Blood Urine Nitrate Urine Bilirubin Urine Urobilinogen Ur Leukocyte Esterase Urine RBC Urine WBC Ur Epithelial Cells Urine Bacteria Urine Other Stool Leukocytes, Qual Influenza Typ A,B (EIA) Assessment & Plan - Assessment and Plan (Free Text) Assessment: 23 year old female with no PMH presenting with abdominal pain and diarrhea. Active treatment of sepsis 2/[address] A?P showing severe mural transverse colon thickening and mild ascending, left hemicolon, and rectal thickening. Prior EGD 03/2017 for evaluation of abdominal pain showed H. pylori negative gastritis with use of Zantac as needed. No prior colonoscopy. Plan: -DDx: gastroenteritis, IBD -Cdiff pending -stool culture and O&P pending -on ceftriaxone/flagyl -blood cultures ordered -fever curve improving -continue IVFs -clear liquid diet as tolerated -supportive care- anti-emetics, pain control -will provide further recommendations if symptoms do not improve with medical management over next 48-72 hours -will benefit from follow up colonoscopy in 6-8 weeks to evaluate for IBD -will monitor clinical course <Harmeet Gardner V - Last Filed: 07/23/18 00:05> Results - Vital Signs Recent Vital Signs: Last Vital Signs Temp 98.2 F 07/22/18 06:00 Pulse 85 07/22/18 10:00 Resp 20 07/22/18 06:00 BP 93/58 L 07/22/18 06:00 Pulse Ox 94 L 07/22/18 06:00 - Labs Result Diagrams: 07/22/18 06:00 07/22/18 06:00 Labs: Laboratory Results - last 24 hr 07/22/18 07/22/18 06:00 06:00 WBC 3.0 L D RBC 3.53 Hgb 11.1 L Hct 32.4 L MCV 91.8 MCH 31.4 MCHC 34.3 RDW 12.5 Plt Count 155 MPV 9.3 Gran % 49.4 L Lymph % (Auto) 40.1 H [place] % (Auto) 9.5 H Eos % (Auto) 0.7 L Baso % (Auto) 0.3 Gran # 1.50 Lymph # (Auto) 1.2 [place] # (Auto) 0.3 Eos # (Auto) 0.0 Baso # (Auto) 0.01 Sodium 139 Potassium 3.5 L Chloride 109 H Carbon Dioxide 20 L Anion Gap 13 BUN 4 L Creatinine 0.5 L Est GFR ( Amer) > 60 Est GFR (Non-Af Amer) > 60 Random Glucose 81 Calcium 8.1 L Total Bilirubin 0.2 AST 17 ALT 21 Alkaline Phosphatase 39 Total Protein 6.0 Albumin 3.1 Globulin 2.9 Albumin/Globulin Ratio 1.1 Attending/Attestation - Attestation I have personally seen and examined this patient.: Yes I have fully participated in the care of the patient.: Yes I have reviewed all pertinent clinical information: Yes Notes (Text): This is an addendum to GI consult report dictated by the GI Fellow.The patient was seen and examined earlier. Medical records, lab studies, imagings were reviewed. Last 24 hours events reviewed. Agreed with the above treatment plan as outlined in GI Fellow 's notes with the addition of the following 07/23/18 00:05
[2018-07-21] MEDS: cefTRIAXone 1 gm 1 GM/100 ML BAG IVPB SCH (09:56)
[2018-07-21 17:08] VITALS: RESP 20
--- NOTE | 2018-07-21 19:51 | CP.PCM.PN ---
<Terry Collins - Last Filed: 07/21/18 19:48> Subjective - Date & Time of Evaluation Date of Evaluation: 07/21/18 Time of Evaluation: 07:00 - Subjective Subjective: Terry Collins, PGY1 Medicine Progress Note for Dr. Garvin Patient was seen and examined at bedside this morning. She endorses diarrhea, x8 episodes since hospital admission. Diarrhea is non-bloody. Patient denies vomiting, cp, sob, numbness/tinging of extremities. She had fever last night (Tmax 101.5) but is afebrile this morning at 99.6. Patient was evaluated by GI prior to interview. Overall, patient is improving. A full 12 point ROS was conducted and unremarkable except as stated above. Objective - Vital Signs/Intake and Output Vital Signs (last 24 hours): Temp Pulse Resp BP Pulse Ox 98.3 F 86 20 89/54 L 99 07/21/18 17:08 07/21/18 18:00 07/21/18 17:08 07/21/18 17:08 07/21/18 17:08 Intake and Output: 07/21/18 07/22/18 18:59 06:59 Intake Total 2360 Balance 2360 - Medications Medications: Current Medications Acetaminophen (Tylenol 325mg Tab) 650 mg PO Q6H PRN PRN Reason: Fever >100.4 F Sodium Chloride (Sodium Chloride 0.9%) 1,000 mls @ 125 mls/hr IV .Q8H [facility] Last Admin: 07/21/18 13:11 Dose: 125 mls/hr Metronidazole (Flagyl) 500 mg in 100 mls @ 100 mls/hr IVPB Q8 [facility]; Protocol Last Admin: 07/21/18 14:44 Dose: 100 mls/hr Ceftriaxone Sodium (Rocephin 1 Gram Ivpb) 1 gm in 100 mls @ 100 mls/hr IVPB DAILY [facility]; Protocol Last Admin: 07/21/18 09:56 Dose: 100 mls/hr Ondansetron HCl (Zofran Inj) 4 mg IVP Q6H PRN PRN Reason: Nausea/Vomiting Last Admin: 07/20/18 17:27 Dose: 4 mg Pantoprazole Sodium (Protonix Inj) 40 mg IVP DAILY [facility] Last Admin: 07/21/18 09:56 Dose: 40 mg - Labs Labs: 07/21/18 06:15 07/21/18 06:15 - Constitutional Appears: No Acute Distress - Head Exam Head Exam: ATRAUMATIC, NORMAL INSPECTION, NORMOCEPHALIC - Eye Exam Eye Exam: EOMI, Normal appearance, PERRL - ENT Exam ENT Exam: Mucous Membranes Moist, Normal Exam - Neck Exam Neck Exam: Full ROM, Normal Inspection. absent: Lymphadenopathy - Respiratory Exam Respiratory Exam: Accessory Muscle Use. absent: Rales, Rhonchi, Wheezes - Cardiovascular Exam Cardiovascular Exam: REGULAR RHYTHM, +S1, +S2. absent: Murmur - GI/Abdominal Exam GI & Abdominal Exam: Soft, Tenderness (mild suprapubic tenderness to palpation), Normal Bowel Sounds - Extremities Exam Extremities Exam: Full ROM, Normal Capillary Refill, Normal Inspection. absent: Joint Swelling, Pedal Edema - Back Exam Back Exam: NORMAL INSPECTION - Neurological Exam Neurological Exam: Alert, Awake, CN II-XII Intact, Normal Gait, Oriented x3 Neuro motor strength exam: Left Upper Extremity: 5, Right Upper Extremity: 5, Left Lower Extremity: 5, Right Lower Extremity: 5 - Skin Skin Exam: Dry, Intact, Normal Color, Warm Assessment and Plan - Assessment and Plan (Free Text) Assessment: Patient is a 23 y/o female with PMHx gastritis who presented to the ED for fever, abdominal pain, diarrhea, vomiting, and headache that occurred yesterday. Medical team was consulted for management. Patient is admitted for viral gasteroenteritis with evidence of pancolitis on imaging. Plan: Viral gastroenteritis with evidence of pancolitis - GI recs supportive care at this. Patient may benefit from colonoscopy in 6-8 weeks to evaluate for possible IBD. - advanced to liquid diet; patient is tolerating PO - stool leukocytes positive - c/w tylenol PO for fevers; no neck pain or nuchal rigidity - C. diff negative - stool ova/parasite is negative - c/w rocephin 1g IVPB daily and flagyl 500mg q8 IVPB - c/w zofran IVP prn for n/v - improving - c/w Protonix 40mg IVP daily - NS IVF at rate of 125 mls/hr - CT Abd/Pelvis in ED: severe circumferential mural thickening in the transverse colon and mild circumferential thickening in the ascending and left hemicolon and rectum. No evidence of bowel dilation or obstruction. - Previous endoscopy (03/28/17) showed gastritis with negative H. Pylori Hypokalemia 2/2 Vomiting - K+ 3.4 today; repleted with K-dur 20meq - monitor GI ppx: PTX Dispo: GI recommendations appreciated. Monitor for fevers and continue with supportive care. Pending blood cx results. Case was discussed and reviewed with Attending Physician, Dr. Garvin. <Richy Garvin - Last Filed: 07/22/18 07:40> Objective - Vital Signs/Intake and Output Vital Signs (last 24 hours): Temp Pulse Resp BP Pulse Ox 98.2 F 84 20 93/58 L 94 L 07/22/18 06:00 07/22/18 06:00 07/22/18 06:00 07/22/18 06:00 07/22/18 06:00 Intake and Output: 07/22/18 07/22/18 06:59 18:59 Intake Total 3810 Balance 3810 - Medications Medications: Current Medications Acetaminophen (Tylenol 325mg Tab) 650 mg PO Q6H PRN PRN Reason: Fever >100.4 F Sodium Chloride (Sodium Chloride 0.9%) 1,000 mls @ 125 mls/hr IV .Q8H [facility] Last Admin: 07/22/18 05:25 Dose: 125 mls/hr Metronidazole (Flagyl) 500 mg in 100 mls @ 100 mls/hr IVPB Q8 [facility]; Protocol Last Admin: 07/22/18 04:59 Dose: 100 mls/hr Ceftriaxone Sodium (Rocephin 1 Gram Ivpb) 1 gm in 100 mls @ 100 mls/hr IVPB DAILY [facility]; Protocol Last Admin: 07/21/18 09:56 Dose: 100 mls/hr Ondansetron HCl (Zofran Inj) 4 mg IVP Q6H PRN PRN Reason: Nausea/Vomiting Last Admin: 07/20/18 17:27 Dose: 4 mg Pantoprazole Sodium (Protonix Inj) 40 mg IVP DAILY [facility] Last Admin: 07/21/18 09:56 Dose: 40 mg - Labs Labs: 07/22/18 06:00 07/22/18 06:00 Attending/Attestation - Attestation I have personally seen and examined this patient.: Yes I have fully participated in the care of the patient.: Yes I have reviewed all pertinent clinical information, including history, physical exam and plan: Yes Notes (Text): 07/21/18 23 year old female with past medical history of gastritis (2017) who presented with complaint of fever, abdominal pain, nausea, vomiting, and diarrhea; possible gastroenteritis or colitis. CT abd/pelvis showed severe circumferential mural thickening in the transverse colon and mild circumferential thickening in the ascending and left hemicolon and rectum. Continue with iv fluids and antiemetics as needed. Diet was advanced to liquids this morning. Continue with iv antibiotics while awaiting cultures. GI evaluation was appreciated. Stool leukocytes positive. Stool for CDif, ova or parasites negative. Tmax was 103 last night. Cultures are negative to date. Procal was negative. Will replete and repeat lytes (potassium). Richy Garvin MD Hospitalist.
[2018-07-22] MEDS: metroNIDAZOLE IV 500 mg/100 ml 500 MG/100 ML BAG IVPB SCH (04:59)
[2018-07-22] MEDS: Sodium Chloride 0.9% 1,000 ML IV SCH ×3 (05:25→09:13)
[2018-07-22 06:48] LABS: BASO # 0.01 K/mm3 (0.0-2.0); BASO % 0.3 % (0.0-3.0); EOS % 0.7 % (1.5-5.0); GRAN # 1.5 (1.4-6.5); GRAN % 49.4 % (50.0-68.0); HEMOGLOBIN 11.1 g/dL (12.0-16.0); LYMPH # 1.2 (1.2-3.4); LYMPH % 40.1 % (22.0-35.0); MEAN CELL VOLUME 91.8 fl (80.0-105.0); MEAN CORPUSCULAR HEMOGLOBIN 31.4 pg (25.0-35.0); MEAN CORPUSCULAR HGB CONC 34.3 g/dl (31.0-37.0); MEAN PLATELET VOLUME 9.3 fl (7.0-11.0); MONO # 0.3 (0.1-0.6); MONO % 9.5 % (1.0-6.0); RBC 3.53 10^6/uL (3.5-6.1); RED CELL DISTRIBUTION WIDTH 12.5 % (11.5-14.5)
[2018-07-22 06:54] VITALS: BP 93/58; TEMP 98.2; O2SAT 94
[2018-07-22 07:10] LABS: ALB/GLOB RATIO 1.1 (1.1-1.8); ALBUMIN 3.1 g/dL (3.0-4.8); ALT/SGPT 21 U/L (7-56); AST/SGOT 17 U/L (14-36); BLOOD UREA NITROGEN 4 mg/dL (7-21); CALCIUM 8.1 mg/dL (8.4-10.5); GFR NON-AFRICAN AMERICAN > 60
[2018-07-22] MEDS ORDERED: Potassium Chloride 20 mEq ER Tab PO STA (07:54)
--- NOTE | 2018-07-22 08:33 | CP.PCM.PN ---
<Cyndie Johns - Last Filed: 07/22/18 08:27> Subjective - Date & Time of Evaluation Date of Evaluation: 07/22/18 Time of Evaluation: 08:27 - Subjective Subjective: Gastroenterology Fellow/PGY6 Progress Note Patient feels much better. Notes minimal lower quadrant pain. Notes four semi- formed stools overnight. A 12-point review of systems negative except for as above. Objective - Vital Signs/Intake and Output Vital Signs (last 24 hours): Temp Pulse Resp BP Pulse Ox 98.2 F 84 20 93/58 L 94 L 07/22/18 06:00 07/22/18 06:00 07/22/18 06:00 07/22/18 06:00 07/22/18 06:00 Intake and Output: 07/22/18 07/22/18 06:59 18:59 Intake Total 3810 Balance 3810 - Medications Medications: Current Medications Acetaminophen (Tylenol 325mg Tab) 650 mg PO Q6H PRN PRN Reason: Fever >100.4 F Sodium Chloride (Sodium Chloride 0.9%) 1,000 mls @ 125 mls/hr IV .Q8H [facility] Last Admin: 07/22/18 05:25 Dose: 125 mls/hr Metronidazole (Flagyl) 500 mg in 100 mls @ 100 mls/hr IVPB Q8 [facility]; Protocol Last Admin: 07/22/18 04:59 Dose: 100 mls/hr Ceftriaxone Sodium (Rocephin 1 Gram Ivpb) 1 gm in 100 mls @ 100 mls/hr IVPB DAILY [facility]; Protocol Last Admin: 07/21/18 09:56 Dose: 100 mls/hr Ondansetron HCl (Zofran Inj) 4 mg IVP Q6H PRN PRN Reason: Nausea/Vomiting Last Admin: 07/20/18 17:27 Dose: 4 mg Pantoprazole Sodium (Protonix Inj) 40 mg IVP DAILY [facility] Last Admin: 07/21/18 09:56 Dose: 40 mg - Labs Labs: 07/22/18 06:00 07/22/18 06:00 - Constitutional Appears: Non-toxic, No Acute Distress - Head Exam Head Exam: ATRAUMATIC, NORMOCEPHALIC - Eye Exam Eye Exam: EOMI, PERRL. absent: Scleral icterus Pupil Exam: PERRL. absent: Miosis, Mydriatic - ENT Exam ENT Exam: Mucous Membranes Moist, Normal Oropharynx - Neck Exam Neck Exam: Full ROM, Normal Inspection - Respiratory Exam Respiratory Exam: Clear to Ausculation Bilateral. absent: Rales, Rhonchi, Wheezes - Cardiovascular Exam Cardiovascular Exam: RRR, +S1, +S2. absent: Gallop, Rubs - GI/Abdominal Exam GI & Abdominal Exam: Soft, Normal Bowel Sounds. absent: Distended, Firm, Guarding, Rigid, Tenderness, Organomegaly, Rebound - Extremities Exam Extremities Exam: Normal Inspection. absent: Pedal Edema - Neurological Exam Neurological Exam: Alert, Awake - Psychiatric Exam Psychiatric exam: Normal Affect, Normal Mood - Skin Skin Exam: Dry, Intact, Normal Color, Warm Assessment and Plan - Assessment and Plan (Free Text) Assessment: 23 year old female with no PMH presenting with abdominal pain and diarrhea. Active treatment of sepsis 2/[address] A/P showing severe mural transverse colon thickening and mild ascending, left hemicolon, and rectal thickening. Prior EGD 03/2017 for evaluation of abdominal pain showed H. pylori negative gastritis with use of Zantac as needed. No prior colonoscopy. Plan: -Cdiff negative -stool culture and O&P pending -on ceftriaxone/flagyl -blood cultures no growth to date -fever curve improved -advance to low residue diet -complete 10-14 day antibiotic course -outpatient GI follow up to re-evaluate symptoms with Dr. Smith <Harmeet Gardner V - Last Filed: 07/23/18 00:05> Objective - Vital Signs/Intake and Output Vital Signs (last 24 hours): Temp Pulse Resp BP Pulse Ox 98.2 F 85 20 93/58 L 94 L 07/22/18 06:00 07/22/18 10:00 07/22/18 06:00 07/22/18 06:00 07/22/18 06:00 Intake and Output: 07/22/18 07/23/18 18:59 06:59 Intake Total 2310 Balance 2310 - Labs Labs: 07/22/18 06:00 07/22/18 06:00 Attending/Attestation - Attestation I have personally seen and examined this patient.: Yes I have fully participated in the care of the patient.: Yes I have reviewed all pertinent clinical information, including history, physical exam and plan: Yes Notes (Text): This is an addendum to GI progress report dictated by the GI Fellow.The patient was seen and examined earlier. Medical records, lab studies, imagings were reviewed. Last 24 hours events reviewed. Agreed with the above treatment plan as outlined in GI Fellow 's notes with the addition of the following 07/23/18 00:04
[2018-07-22] MEDS: cefTRIAXone 1 gm 1 GM/100 ML BAG IVPB SCH (09:12)
[2018-07-22] MEDS ORDERED: Influenza Vaccine 60 mcg/0.5 mL SYR (4YR UP) IM ONE (12:04)
[2018-07-22 12:39] VITALS: PULSE 85
--- NOTE | 2018-07-22 18:17 | CP.PCM.DIS ---
<DennisTerry - Last Filed: 07/22/18 18:05> Provider - Provider Date of Admission: 07/20/18 18:25 Attending physician: Richy Garvin MD Time Spent in preparation of Discharge (in minutes): 35 Hospital Course - Lab Results Lab Results: Micro Results 07/20/18 11:30 Blood-Venous Blood Culture - Preliminary NO GROWTH AFTER 24 HOURS 07/20/18 11:15 Blood-Venous Blood Culture - Preliminary NO GROWTH AFTER 24 HOURS 07/20/18 18:00 Stool C. difficile Antigen & Toxins A,B - Final 07/20/18 18:00 Stool Ova and Parasite Concentrate Exam - Final Most Recent Lab Values WBC 3.0 10^3/uL (4.5-11.0) L D 07/22/18 06:00 RBC 3.53 10^6/uL (3.5-6.1) 07/22/18 06:00 Hgb 11.1 g/dL (12.0-16.0) L 07/22/18 06:00 Hct 32.4 % (36.0-48.0) L 07/22/18 06:00 MCV 91.8 fl (80.0-105.0) 07/22/18 06:00 MCH 31.4 pg (25.0-35.0) 07/22/18 06:00 MCHC 34.3 g/dl (31.0-37.0) 07/22/18 06:00 RDW 12.5 % (11.5-14.5) 07/22/18 06:00 Plt Count 155 10^3/uL (120.0-450.0) 07/22/18 06:00 MPV 9.3 fl (7.0-11.0) 07/22/18 06:00 Gran % 49.4 % (50.0-68.0) L 07/22/18 06:00 Lymph % (Auto) 40.1 % (22.0-35.0) H 07/22/18 06:00 [place] % (Auto) 9.5 % (1.0-6.0) H 07/22/18 06:00 Eos % (Auto) 0.7 % (1.5-5.0) L 07/22/18 06:00 Baso % (Auto) 0.3 % (0.0-3.0) 07/22/18 06:00 Gran # 1.50 (1.4-6.5) 07/22/18 06:00 Lymph # (Auto) 1.2 (1.2-3.4) 07/22/18 06:00 [place] # (Auto) 0.3 (0.1-0.6) 07/22/18 06:00 Eos # (Auto) 0.0 (0.0-0.7) 07/22/18 06:00 Baso # (Auto) 0.01 K/mm3 (0.0-2.0) 07/22/18 06:00 pO2 34 mm/Hg (30-55) 07/20/18 11:20 VBG pH 7.34 (7.32-7.43) 07/20/18 11:20 VBG pCO2 45.0 (40-60) 07/20/18 11:20 VBG HCO3 24.3 mmol/l (21-28) 07/20/18 11:20 VBG Total CO2 25.7 mmol.L (22-28) 07/20/18 11:20 VBG O2 Sat (Calc) 72.3 % (40-65) H 07/20/18 11:20 VBG Base Excess -1.7 mmol/L (0.0-2.0) L 07/20/18 11:20 VBG Potassium 2.8 mmol/L (3.6-5.2) L 07/20/18 11:20 Sodium 135.0 mmol/L (132-148) 07/20/18 11:20 Chloride 100.0 mmol/L (98-107) 07/20/18 11:20 Glucose 107 mg/dl (65-105) H 07/20/18 11:20 Lactate 1.7 mmol/L (0.7-2.1) 07/20/18 11:20 FiO2 21.0 % 07/20/18 11:20 Sodium 139 mmol/L (132-148) 07/22/18 06:00 Potassium 3.5 mmol/L (3.6-5.0) L 07/22/18 06:00 Chloride 109 mmol/L (98-107) H 07/22/18 06:00 Carbon Dioxide 20 mmol/L (21-33) L 07/22/18 06:00 Anion Gap 13 (10-20) 07/22/18 06:00 BUN 4 mg/dL (7-21) L 07/22/18 06:00 Creatinine 0.5 mg/dl (0.7-1.2) L 07/22/18 06:00 Est GFR ( Amer) > 60 07/22/18 06:00 Est GFR (Non-Af Amer) > 60 07/22/18 06:00 Random Glucose 81 mg/dL (70-110) 07/22/18 06:00 Calcium 8.1 mg/dL (8.4-10.5) L 07/22/18 06:00 Phosphorus 2.7 mg/dL (2.5-4.5) 07/21/18 06:15 Magnesium 1.8 mg/dL (1.7-2.2) 07/21/18 06:15 Total Bilirubin 0.2 mg/dL (0.2-1.3) 07/22/18 06:00 AST 17 U/L (14-36) 07/22/18 06:00 ALT 21 U/L (7-56) 07/22/18 06:00 Alkaline Phosphatase 39 U/L (38-126) 07/22/18 06:00 Total Protein 6.0 g/dL (5.8-8.3) 07/22/18 06:00 Albumin 3.1 g/dL (3.0-4.8) 07/22/18 06:00 Globulin 2.9 gm/dL 07/22/18 06:00 Albumin/Globulin Ratio 1.1 (1.1-1.8) 07/22/18 06:00 Lipase 49 U/L (23-300) 07/20/18 11:20 Procalcitonin 0.30 NG/ML (0.19-0.49) 07/20/18 18:47 Venous Blood Potassium 2.8 mmol/L (3.6-5.2) L 07/20/18 11:20 Urine Color Yellow (YELLOW) 07/20/18 11:00 Urine Appearance Clear (CLEAR) 07/20/18 11:00 Urine pH 6.5 (4.7-8.0) 07/20/18 11:00 Ur Specific [place] 1.020 (1.005-1.035) 07/20/18 11:00 Urine Protein Trace mg/dL (<30 mg/dL) H 07/20/18 11:00 Urine Glucose (UA) Negative mg/dL (NEGATIVE) 07/20/18 11:00 Urine Ketones 40 mg/dL (NEGATIVE) H 07/20/18 11:00 Urine Blood Trace-intact (NEGATIVE) H 07/20/18 11:00 Urine Nitrate Negative (NEGATIVE) 07/20/18 11:00 Urine Bilirubin Negative (NEGATIVE) 07/20/18 11:00 Urine Urobilinogen 0.2 E.U./dL (<1 E.U./dL) 07/20/18 11:00 Ur Leukocyte Esterase Negative Noah/uL (NEGATIVE) 07/20/18 11:00 Urine RBC 2 - 5 /hpf (0-2) 07/20/18 11:00 Urine WBC 0 - 2 /hpf (0-6) 07/20/18 11:00 Ur Epithelial Cells 6 - 8 /hpf (0-5) 07/20/18 11:00 Urine Bacteria Large (NEG) 07/20/18 11:00 Urine Other Uyeast 07/20/18 11:00 Stool Leukocytes, Qual Positive (NEGATIVE) H 07/20/18 18:00 Influenza Typ A,B (EIA) Negative for flu a/b (NEGATIVE) 07/20/18 10:45 - Hospital Course Hospital Course: Terry Collins, PGY1 Discharge Summary for Dr. Garvin Patient is an 23 year old female with a PMHx of gastritis who presented to the ED for fever, abdominal pain, diarrhea, vomiting, and headache that started on Saturday, Jul 20. Patient denied sick contacts and recent travel. She admitted to eating Popeyes prior to the start of her symptoms. In the ED, patient had Temp: 101.7. Patient's cbc and bmp were unremarkable except for a K of 3.1 (2/2 vomiting) which was repleted with 40meq K-dur. CXR, Head CT and CT abdomen/pelvis were also ordered. Patient was started on IVF. Medical team was consulted for evaluation. Patient had a previous admission for abdominal pain, in which she was seen by GI (Dr. Smith); she was sent for endoscopy (03/28/17) that showed gastritis. She indicated that she had non-bloody vomiting prior to admission and had another episode prior to interview. Patient also had x7 episodes of non-bloody diarrhea the day before admission and x4 episodes prior to admission. Pt denies recent antibiotic use. Pt explained that her headache was bilateral without phonophobia or photophobia; it has resolved upon admission. Abdominal pain was rated 3/10 and localized to the lower abdomen. GI was consulted. CT Abd/Pelvis was suggestive of pancolitis (severe circumferential mural thickening in the transverse colon and mild circumferential thickening in the ascending and left hemicolon and rectum with no evidence of bowel dilation or obstruction). Patient was started on antibx (Rocephin and Flagyl). Stool leukocytes were positive, ova/parasites negative. C. diff negative. Patient was treated for viral gastroenteritis with underlying pancolitis. GI recommended to continue antibiotic treatment with conservative management. Patient has improved clinically during hospital course and she is now able to tolerate PO. Patient is safe for discharge. She will follow up with GI (Dr. Smith) upon discharge to home. She will complete 10 days of antibiotics after discharge. Discharge Exam - Head Exam Head Exam: ATRAUMATIC, NORMAL INSPECTION, NORMOCEPHALIC - Eye Exam Eye Exam: EOMI, Normal appearance, PERRL Pupil Exam: NORMAL ACCOMODATION, PERRL - ENT Exam ENT Exam: Mucous Membranes Moist, Normal Exam - Respiratory Exam Respiratory Exam: Clear to PA & Lateral. absent: Rales, Rhonchi, Wheezes - Cardiovascular Exam Cardiovascular Exam: RRR, +S1, +S2 - GI/Abdominal Exam GI & Abdominal Exam: Normal Bowel Sounds, Soft, Tenderness (Mild tenderness suprapubic, improved since admission. ). absent: Firm, Guarding, Pulsatile Mass, Rebound, Rigid - Extremities Exam Extremities exam: full ROM, normal inspection, pedal pulses present - Back Exam Back exam: NORMAL INSPECTION. absent: CVA tenderness (L), CVA tenderness (R) - Neurological Exam Neurological exam: Alert, Normal Gait, Oriented x3 - Skin Skin Exam: Dry, Intact, Normal Color, Warm Discharge Plan - Discharge Medications Prescriptions: Ciprofloxacin [Cipro] 500 mg PO Q12 #20 tab Metronidazole [Flagyl] 500 mg PO Q8 #30 tablet - Follow Up Plan Condition: STABLE Disposition: HOME/ ROUTINE Instructions: Irritable Bowel Syndrome, Viral Gastroenteritis, Adult (DC), Fever, Adult (DC) Additional Instructions: 1. You will be prescribed two antibiotics on discharge: Ciprofloxacin 500mg twice a day for 10 days total. Flagyl 500mg three times a day for 10 days total. Please takes these medications as prescribed. 2. Please see your Primary Care Physician (Dr. Rasheed) within 1 week of discharge. 3. Please follow up with the [facility] (Dr. Smith) within 1 week of discharge. GI recommended follow up colonoscopy in 6-8 weeks. Please discuss this with Dr. Smith. 4. Please return to the Emergency Department if your symptoms (worsening vomiting, diarrhea, fevers, abdominal pain) worsen. <Richy Garvin - Last Filed: 07/22/18 23:10> Provider - Provider Date of Admission: 07/20/18 18:25 Attending physician: Richy Garvin MD Hospital Course - Lab Results Lab Results: Micro Results 07/20/18 11:30 Blood-Venous Blood Culture - Preliminary NO GROWTH AFTER 48 HOURS 07/20/18 11:15 Blood-Venous Blood Culture - Preliminary NO GROWTH AFTER 48 HOURS 07/20/18 18:00 Stool C. difficile Antigen & Toxins A,B - Final 07/20/18 18:00 Stool Ova and Parasite Concentrate Exam - Final Most Recent Lab Values WBC 3.0 10^3/uL (4.5-11.0) L D 07/22/18 06:00 RBC 3.53 10^6/uL (3.5-6.1) 07/22/18 06:00 Hgb 11.1 g/dL (12.0-16.0) L 07/22/18 06:00 Hct 32.4 % (36.0-48.0) L 07/22/18 06:00 MCV 91.8 fl (80.0-105.0) 07/22/18 06:00 MCH 31.4 pg (25.0-35.0) 07/22/18 06:00 MCHC 34.3 g/dl (31.0-37.0) 07/22/18 06:00 RDW 12.5 % (11.5-14.5) 07/22/18 06:00 Plt Count 155 10^3/uL (120.0-450.0) 07/22/18 06:00 MPV 9.3 fl (7.0-11.0) 07/22/18 06:00 Gran % 49.4 % (50.0-68.0) L 07/22/18 06:00 Lymph % (Auto) 40.1 % (22.0-35.0) H 07/22/18 06:00 [place] % (Auto) 9.5 % (1.0-6.0) H 07/22/18 06:00 Eos % (Auto) 0.7 % (1.5-5.0) L 07/22/18 06:00 Baso % (Auto) 0.3 % (0.0-3.0) 07/22/18 06:00 Gran # 1.50 (1.4-6.5) 07/22/18 06:00 Lymph # (Auto) 1.2 (1.2-3.4) 07/22/18 06:00 [place] # (Auto) 0.3 (0.1-0.6) 07/22/18 06:00 Eos # (Auto) 0.0 (0.0-0.7) 07/22/18 06:00 Baso # (Auto) 0.01 K/mm3 (0.0-2.0) 07/22/18 06:00 pO2 34 mm/Hg (30-55) 07/20/18 11:20 VBG pH 7.34 (7.32-7.43) 07/20/18 11:20 VBG pCO2 45.0 (40-60) 07/20/18 11:20 VBG HCO3 24.3 mmol/l (21-28) 07/20/18 11:20 VBG Total CO2 25.7 mmol.L (22-28) 07/20/18 11:20 VBG O2 Sat (Calc) 72.3 % (40-65) H 07/20/18 11:20 VBG Base Excess -1.7 mmol/L (0.0-2.0) L 07/20/18 11:20 VBG Potassium 2.8 mmol/L (3.6-5.2) L 07/20/18 11:20 Sodium 135.0 mmol/L (132-148) 07/20/18 11:20 Chloride 100.0 mmol/L (98-107) 07/20/18 11:20 Glucose 107 mg/dl (65-105) H 07/20/18 11:20 Lactate 1.7 mmol/L (0.7-2.1) 07/20/18 11:20 FiO2 21.0 % 07/20/18 11:20 Sodium 139 mmol/L (132-148) 07/22/18 06:00 Potassium 3.5 mmol/L (3.6-5.0) L 07/22/18 06:00 Chloride 109 mmol/L (98-107) H 07/22/18 06:00 Carbon Dioxide 20 mmol/L (21-33) L 07/22/18 06:00 Anion Gap 13 (10-20) 07/22/18 06:00 BUN 4 mg/dL (7-21) L 07/22/18 06:00 Creatinine 0.5 mg/dl (0.7-1.2) L 07/22/18 06:00 Est GFR ( Amer) > 60 07/22/18 06:00 Est GFR (Non-Af Amer) > 60 07/22/18 06:00 Random Glucose 81 mg/dL (70-110) 07/22/18 06:00 Calcium 8.1 mg/dL (8.4-10.5) L 07/22/18 06:00 Phosphorus 2.7 mg/dL (2.5-4.5) 07/21/18 06:15 Magnesium 1.8 mg/dL (1.7-2.2) 07/21/18 06:15 Total Bilirubin 0.2 mg/dL (0.2-1.3) 07/22/18 06:00 AST 17 U/L (14-36) 07/22/18 06:00 ALT 21 U/L (7-56) 07/22/18 06:00 Alkaline Phosphatase 39 U/L (38-126) 07/22/18 06:00 Total Protein 6.0 g/dL (5.8-8.3) 07/22/18 06:00 Albumin 3.1 g/dL (3.0-4.8) 07/22/18 06:00 Globulin 2.9 gm/dL 07/22/18 06:00 Albumin/Globulin Ratio 1.1 (1.1-1.8) 07/22/18 06:00 Lipase 49 U/L (23-300) 07/20/18 11:20 Procalcitonin 0.30 NG/ML (0.19-0.49) 07/20/18 18:47 Venous Blood Potassium 2.8 mmol/L (3.6-5.2) L 07/20/18 11:20 Urine Color Yellow (YELLOW) 07/20/18 11:00 Urine Appearance Clear (CLEAR) 07/20/18 11:00 Urine pH 6.5 (4.7-8.0) 07/20/18 11:00 Ur Specific [place] 1.020 (1.005-1.035) 07/20/18 11:00 Urine Protein Trace mg/dL (<30 mg/dL) H 07/20/18 11:00 Urine Glucose (UA) Negative mg/dL (NEGATIVE) 07/20/18 11:00 Urine Ketones 40 mg/dL (NEGATIVE) H 07/20/18 11:00 Urine Blood Trace-intact (NEGATIVE) H 07/20/18 11:00 Urine Nitrate Negative (NEGATIVE) 07/20/18 11:00 Urine Bilirubin Negative (NEGATIVE) 07/20/18 11:00 Urine Urobilinogen 0.2 E.U./dL (<1 E.U./dL) 07/20/18 11:00 Ur Leukocyte Esterase Negative Noah/uL (NEGATIVE) 07/20/18 11:00 Urine RBC 2 - 5 /hpf (0-2) 07/20/18 11:00 Urine WBC 0 - 2 /hpf (0-6) 07/20/18 11:00 Ur Epithelial Cells 6 - 8 /hpf (0-5) 07/20/18 11:00 Urine Bacteria Large (NEG) 07/20/18 11:00 Urine Other Uyeast 07/20/18 11:00 Stool Leukocytes, Qual Positive (NEGATIVE) H 07/20/18 18:00 Influenza Typ A,B (EIA) Negative for flu a/b (NEGATIVE) 07/20/18 10:45 Attending/Attestation - Attestation I have personally seen and examined this patient.: Yes I have fully participated in the care of the patient.: Yes I have reviewed all pertinent clinical information, including history, physical exam and plan: Yes
== END 2018-07-22 12:41 | disposition home or self-care (01) | DRG 720 ==
LOC: ED 10:24 → ERH 16:26 → OBSVTOIN 18:25 → ERH 18:30 → 3RSO 19:15
PROVIDERS: ADMIT Internal Medicine; ATTEND Internal Medicine
DX: A41.9 Sepsis, unspecified organism (principal); N39.0 Urinary tract infection, site not specified; A09 Infectious gastroenteritis and colitis, unspecified; B37.9 Candidiasis, unspecified; E87.6 Hypokalemia; K12.0 Recurrent oral aphthae; K21.9 Gastro-esophageal reflux disease without esophagitis; Z80.0 Family history of malignant neoplasm of digestive organs; Z82.49 Family history of ischemic heart disease and other diseases of the circulatory system; Z83.3 Family history of diabetes mellitus; Z23 Encounter for immunization

== ENCOUNTER 2018-08-11 07:51 | Emergency (ER) | payer MEDICAID ==
[2018-08-11 07:55] VITALS: BMI 17.6
--- NOTE | 2018-08-11 08:17 | ED PDOC ---
Arrival/HPI - General Chief Complaint: Abdominal Pain Time Seen by Provider: 08/11/18 08:12 Historian: Patient - History of Present Illness Narrative History of Present Illness (Text): 08/11/18 08:33 A 23 year old female, with no significant past medical history, presents to the emergency department complaining of constant bdominal pain for the past 4 days. Patient reports also experiencing some constipation, last bowel movement was here in the ER today. States pain was worse yesterday and was unable to eat yesterday afternoon. Mentions taking Advil, which relieved symptom. Patient notes she has been taking antibiotics prescribed to her for stomach infection when she came 2 weeks ago here to the ER for worse abdominal pain at the time, along with fever, diarrhea, and headache. Patient denies any fever, chills, nausea, vomiting, diarrhea, dysuria, frequency, or any other complaints at this time. Denies any history of smoking, EtOH/substance abuse, no past abdominal surgeries. LMP 07/14/18. No recent travel. Also, patient mentions seeing her PMD last week, who recommended to her to follow-up with a GI physician, which she has not done so yet. PMD: Dr. Rasheed Time/Duration: < week (4 days) Past Medical History - Provider Review Nursing Documentation Reviewed: Yes - Infectious Disease Hx of Infectious Diseases: None - Cardiac Hx Cardiac Disorders: No - Pulmonary Hx Sleep Apnea: No - Neurological Hx Seizures: No - HEENT Hx HEENT Disorder: No - Renal Hx Renal Disorder: No - Endocrine/Metabolic Hx Endocrine Disorders: No - Hematological/Oncological Hx Blood Transfusions: No - Integumentary Hx Dermatological Disorder: No - Musculoskeletal/Rheumatological Hx Back Pain: No Hx Falls: No Hx Fractures: No - Gastrointestinal Hx Gastrointestinal Disorders: Yes Hx Gastritis: Yes Hx Gastroesophageal Reflux: Yes Other/Comment: stomach infection [id number] - Genitourinary/Gynecological Hx Genitourinary Disorders: No - Psychiatric Hx Substance Use: No - Anesthesia Hx Anesthesia: No Hx Anesthesia Reactions: No Hx Malignant Hyperthermia: No Family/Social History - Physician Review Nursing Documentation Reviewed: Yes Family/Social History: No Known Family HX Smoking Status: Never Smoked Hx Alcohol Use: No Hx Substance Use: No Allergies/Home Meds Allergies/Adverse Reactions: Allergies No Known Allergies Allergy (Verified 08/11/18 07:55) Review of Systems - Physician Review All systems were reviewed & negative as marked: Yes - Review of Systems Constitutional: absent: Fevers, Night Sweats Gastrointestinal: Abdominal Pain. absent: Diarrhea, Nausea, Vomiting Genitourinary Female: absent: Dysuria, Frequency, Urine Output Changes Physical Exam - Physical Exam Narrative Physical Exam (Text): PE: Gen: NAD, cooperative, well appearing, non-toxic. Head: NCAT. HEENT: EYES: PERRL, EOMI, conjunctiva clear, EARS: TMs clear MOUTH: moist MM, posterior pharynx without erythema or exudate, uvula midline. CV: (+) S1S2, RRR, no M/G/R LUNGS: CTA B/L, No W/R/R, good air movement Abd: Soft, tenderness to bilateral lower abdomen region, no guarding, rebound or rigidity. Neuro: AAO x 3, GCS 15, CN 2-12 intact, motor and sensory grossly intact, 5/5 muscle strength B/L UE's and LE's. ext: no cyanosis or edema Vital Signs Reviewed: Yes Vital Signs Temp Pulse Resp BP Pulse Ox 08/11/18 07:56 97.9 F 93 H 15 81/55 L 100 Temperature: Afebrile Blood Pressure: Hypotensive Pulse: Regular Respiratory Rate: Normal Appearance: Positive for: Well-Appearing, Non-Toxic, Comfortable Pain Distress: None Mental Status: Positive for: Alert and Oriented X 3 Medical Decision Making ED Course and Treatment: 08/11/18 08:37 Impression: 23 year old female with constant abdominal pain. Plan: -- POC Urine Test -- Urinalysis -- Reassess and disposition Prior Visits: Notes and results from previous visits were reviewed. Patient was last seen in the emergency department on 07/20/2018 for fever, abdominal pain, diarrhea, headache. Patient was admitted. Progress Notes: 08/11/18 09:33 Urinalysis results negative. POC Urine test negative. Patient to have Pelvic ultrasound. 08/11/18 12:46 Pt re-eval. Pt states feeling much better. Denies any abd pain, n/v, or any other complaints at this time. Abd re-examined: Soft, NTTP, benign. Pt eating meal. Understands and agrees to immediately return to ER if increasing pain, vomiting, fevers, or any other concerning, worsening, new or continued sxs. Patient has an unremarkable Pelvic Ultrasound. Patient is tolerating PO well and is stable to be discharged home with Motrin. Patient is aware that early disease may be missed by Imaging and to return in [place] for re-evaluation if any continued, worsening, new or continued symptoms. Patient was advised to follow-up with Dr. Rasheed and the recommended GI and take Motrin as needed. Patient is aware, understands and agrees with plan. - Scribe Statement The provider has reviewed the documentation as recorded by the Jalil Gardiner Provider Scribe Attestation: All medical record entries made by the Derikibe were at my direction and personally dictated by me. I have reviewed the chart and agree that the record accurately reflects my personal performance of the history, physical exam, medical decision making, and the department course for this patient. I have also personally directed, reviewed, and agree with the discharge instructions and disposition. Disposition/Present on Arrival - Present on Arrival Any Indicators Present on Arrival: No History of DVT/PE: No History of Uncontrolled Diabetes: No Urinary Catheter: No History of Decub. Ulcer: No History Surgical Site Infection Following: None - Disposition Have Diagnosis and Disposition been Completed?: Yes Diagnosis: Abdominal pain Disposition: HOME/ ROUTINE Disposition Time: 12:38 Patient Plan: Discharge Patient Problems: Current Active Problems Problem Status Onset Abdominal pain Acute Discharge Instructions (ExitCare): Acute Abdomen (Belly Pain), Adult (DC) Prescriptions: Ibuprofen [Motrin Tab] 800 mg PO TID PRN #30 tab PRN Reason: Pain, Moderate (4-7) Referrals: Kalyn Rasheed MD [Family Provider] - Follow up with primary Forms: [employer] (Tai[place]ese)
[2018-08-11 08:48] LABS: PH,URINE 6.5 (4.7-8.0); URINE BILIRUBIN NEGATIVE (NEGATIVE); URINE BLOOD NEGATIVE (NEGATIVE); URINE GLUCOSE (UA) NEGATIVE (NEGATIVE); URINE LEUKOCYTE ESTERASE NEGATIVE Leu/uL (NEGATIVE); URINE PROTEIN NEGATIVE mg/dL (<30 mg/dL); URINE UROBILINOGEN 0.2 E.U./dL (<1 E.U./dL)
[2018-08-11 08:49] LABS: URINE APPEARANCE CLEAR (CLEAR); URINE COLOR YELLOW (YELLOW)
--- NOTE | 2018-08-11 12:05 | US ---
Date of service: 08/11/2018 PROCEDURE: HISTORY: pelvic pain COMPARISON: TECHNIQUE: FINDINGS: The uterus measures 8.9 x 3.1 x 5.8 centimeters. The endometrium measures 6 millimeters. There is a small amount of free fluid in the cul de sac. The right ovary measures 3.3 x 3.5 centimeters. Left ovaryMeasures 3.7 x 3.5 centimeters. Bilateral variant follicles are observed measuring up to 1.5 centimeters in the left ovary. IMPRESSION: Unremarkable pelvic ultrasound.
[2018-08-11 13:01] VITALS: BP 84/56; PULSE 94; RESP 16; TEMP 98.2; O2SAT 98
== END 2018-08-11 12:54 | disposition home or self-care (01) ==
LOC: ED 07:51
DX: R10.9 Unspecified abdominal pain (principal)